=== PATIENT | female | born 1960 | race Two or more races ===

== ENCOUNTER 2017-04-16 18:35 | Inpatient (IN) | payer OTHER ==
[~2017-04-16 18:35] MED LIST: LIDOCAINE 2% (SDV) 5 ML INJ
[2017-04-16] MEDS ORDERED: D5-NS + KCL 20 MEQ 1,000 ML IV (20:42)
[2017-04-16] MEDS ORDERED: SUCCINYLCHOLINE CHLORIDE 100 MG/5 ML SYG IV ×2 (20:45→21:33)
[2017-04-16] MEDS ORDERED: ROPIVACAINE 0.5 % 30 ML VIAL (20:45)
[2017-04-16] MEDS ORDERED: PROVENTIL HFA 6.7GM INHALER (20:51)
[2017-04-16] MEDS: LIDOCAINE 1%/EPI 30 ML INJ ×2 (20:58→21:28)
[2017-04-16] MEDS: BUPIVACAINE 0.25% (MPF) 30 ML INJ ×2 (20:58→21:28)
[2017-04-16] MEDS ORDERED: ACETAMINOPHEN 325 MG TAB PO (21:00)
[2017-04-16] MEDS ORDERED: SUGAMMADEX SODIUM 200 MG/2 ML VIAL IV (21:33)
[2017-04-16] MEDS ORDERED: ROCURONIUM 50 MG INJ (21:33)
[2017-04-16] MEDS ORDERED: PROPOFOL 20 ML (21:33)
[2017-04-16] MEDS ORDERED: HYDROmorphONE (0.2 MG/ML) 10ML SYG IV ×2 (22:00)
[2017-04-16] MEDS ORDERED: FENTAnyl 50 MCG/ML VIAL IV ×3 (22:00)
[2017-04-16] MEDS ORDERED: METOCLOPRAMIDE 10 MG INJ IV (22:00)
[2017-04-16] MEDS ORDERED: DIPHENHYDRAMINE 50 MG INJ IV (22:00)
[2017-04-16] MEDS ORDERED: ALBUMIN HUMAN 5% 250 ML (22:58)
[2017-04-16] MEDS: ALBUMIN HUMAN 5% 250 ML IV (23:06)
[2017-04-16] MEDS: ONDANSETRON 4 MG INJ IV (23:25)
[2017-04-17] MEDS: ALBUMIN HUMAN 5% 250 ML IV (00:04)
[2017-04-17] MEDS: MEPERIDINE 25 MG INJ IV (00:06)
[2017-04-17] MEDS: PIPER-TAZO 3.375 GM IV (PMX) 100 ML IVPB ×4 (00:52→17:47)
[2017-04-17] MEDS: morphine 2 MG INJ IV ×3 (00:53→09:18)
[2017-04-17] MEDS: ONDANSETRON 4 MG INJ IV ×2 (00:53→06:29)
[2017-04-17] MEDS: SOD CHLORIDE 0.9% 1,000 ML IV ×3 (02:32→04:39)
[2017-04-17 02:51] LABS: ADD MAN DIFF? NO
[2017-04-17 02:55] LABS: BASOPHILS % 0.3 % (0.0-2.0); HEMATOCRIT 36.6 % (37.0-47.0); HEMOGLOBIN 11.6 g/dl (12.0-16.0); LYMPHOCYTES % 8.6 % (15.0-51.0); MEAN CORPUSCULAR HEMOGLOBIN 30.4 pg (29.0-33.0); MEAN CORPUSCULAR HGB CONC 31.7 g/dl (32.0-37.0); MEAN CORPUSCULAR VOLUME 96.1 fl (82.0-101.0); MEAN PLATELET VOLUME 11.3 fl (7.4-10.4); MONOCYTE # 1.1 10^3/ul (0.3-0.9); MONOCYTES % 9.3 % (0.0-11.0); NEUTROPHIL # 9.2 10^3/ul (1.6-7.5); NEUTROPHILS % 81.3 % (39.0-77.0); PLATELET COUNT 143 10^3/UL (140-415); RED BLOOD COUNT 3.81 10^6/ul (4.20-5.40); RED CELL DISTRIBUTION WIDTH 14.1 % (11.5-14.5)
[2017-04-17 02:55] LABS: WHITE BLOOD COUNT 11.3 10^3/ul (4.8-10.8)
[2017-04-17 03:14] LABS: HEMOGLOBIN A1C 5.2 % (0-5.9)
[2017-04-17 03:18] LABS: LACTIC ACID 2.2 mmol/L (0.5-2.0)
[2017-04-17 03:25] LABS: ALANINE AMINOTRANSFERASE 28 IU/L (13-69); ALBUMIN 3.4 g/dl (3.3-4.9); ALBUMIN/GLOBULIN RATIO 1.09; ALKALINE PHOSPHATASE 67 IU/L (42-121); ANION GAP 14 (8-16); ASPARTATE AMINO TRANSFERASE 26 IU/L (15-46); BILIRUBIN,INDIRECT 1.1 mg/dl (0-1.1); BILIRUBIN,TOTAL 1.1 mg/dl (0.2-1.3); BLOOD UREA NITROGEN 9 mg/dl (7-20); CALCIUM 7.7 mg/dl (8.4-10.2); CARBON DIOXIDE 29 mmol/L (21-31); CHLORIDE 108 mmol/L (97-110); CHOL/HDL RATIO 2.1 RATIO; CHOLESTEROL 133 mg/dl (100-200); CREATININE 0.74 mg/dl (0.44-1.00); GLUCOSE 98 mg/dl (70-220); HDL CHOLESTEROL 62 mg/dl (37-92); LDL CHOLESTEROL,CALCULATED 59 mg/dl; POTASSIUM 4.1 mmol/L (3.5-5.1); SODIUM 147 mmol/L (135-144); TOTAL PROTEIN 6.5 g/dl (6.1-8.1); TRIGLYCERIDES 59 mg/dl (0-149)
[2017-04-17 03:56] LABS: THYROID STIMULATING HORMONE 0.819 MIU/L (0.465-4.680)
[2017-04-17] MEDS: ACETAMINOPHEN 325 MG TAB PO (04:14)
[2017-04-17] MEDS ORDERED: DEXTROSE 5% 1,000 ML IV (04:30)
[2017-04-17] MEDS: PANTOPRAZOLE 40 MG INJ IV (06:07)
[2017-04-17] MEDS: SOD CHLORIDE 0.45% 1,000 ML IV ×2 (06:07→20:08)
[2017-04-17] MEDS: SODIUM CHLORIDE 0.45% 500 ML BAG IV* (06:30)
[2017-04-17] MEDS ORDERED: ACETAMINOPHEN 1000MG/100ML IV 100 ML IVPB (07:00)
[2017-04-17 08:01] LABS: LACTIC ACID 0.8 mmol/L (0.5-2.0)
[2017-04-17] MEDS: ENOXAPARIN 40 MG/0.4 ML SYG SC (08:40)
[2017-04-17 11:17] LABS: ADD MAN DIFF? NO
[2017-04-17 11:23] LABS: WHITE BLOOD COUNT 9.4 10^3/ul (4.8-10.8)
[2017-04-17 11:23] LABS: BASOPHILS % 0.2 % (0.0-2.0); EOSINOPHILS % 0.1 % (0.0-7.0); HEMATOCRIT 32.6 % (37.0-47.0); HEMOGLOBIN 10.3 g/dl (12.0-16.0); LYMPHOCYTES # 1.2 10^3/ul (0.8-2.9); LYMPHOCYTES % 12.5 % (15.0-51.0); MEAN CORPUSCULAR HEMOGLOBIN 29.9 pg (29.0-33.0); MEAN CORPUSCULAR HGB CONC 31.6 g/dl (32.0-37.0); MEAN CORPUSCULAR VOLUME 94.8 fl (82.0-101.0); MEAN PLATELET VOLUME 11.3 fl (7.4-10.4); MONOCYTE # 0.9 10^3/ul (0.3-0.9); MONOCYTES % 9.9 % (0.0-11.0); NEUTROPHIL # 7.2 10^3/ul (1.6-7.5); NEUTROPHILS % 77.1 % (39.0-77.0); PLATELET COUNT 128 10^3/UL (140-415); RED BLOOD COUNT 3.44 10^6/ul (4.20-5.40)
[2017-04-17 11:24] LABS: POSITIVE DIFF @See below
[2017-04-17 11:50] LABS: LACTIC ACID 0.7 mmol/L (0.5-2.0)
[2017-04-17 12:44] LABS: ANION GAP 13 (8-16); BLOOD UREA NITROGEN 9 mg/dl (7-20); CALCIUM 7.2 mg/dl (8.4-10.2); CARBON DIOXIDE 24 mmol/L (21-31); CHLORIDE 112 mmol/L (97-110); GLUCOSE 83 mg/dl (70-220); POTASSIUM 3.4 mmol/L (3.5-5.1); SODIUM 146 mmol/L (135-144)
[2017-04-17] MEDS: POTASSIUM CHLORIDE 100 ML IVPB (16:01)
[2017-04-17] MEDS: HYDROCODONE/APAP (5/325) TAB PO ×2 (23:51→23:52)
[2017-04-18] MEDS: PIPER-TAZO 3.375 GM IV (PMX) 100 ML IVPB ×4 (01:23→18:33)
[2017-04-18] MEDS: PANTOPRAZOLE 40 MG INJ IV (06:27)
[2017-04-18] MEDS: ENOXAPARIN 40 MG/0.4 ML SYG SC (06:28)
[2017-04-18] MEDS: SOD CHLORIDE 0.45% 1,000 ML IV ×3 (06:29→22:39)
[2017-04-18] MEDS: HYDROCODONE/APAP (5/325) TAB PO ×2 (07:34→22:40)
[2017-04-18 08:12] LABS: ADD MAN DIFF? NO
[2017-04-18 08:18] LABS: WHITE BLOOD COUNT 9.3 10^3/ul (4.8-10.8)
[2017-04-18 08:18] LABS: BASOPHILS % 0.2 % (0.0-2.0); EOSINOPHILS # 0.1 10^3/ul (0.0-0.5); EOSINOPHILS % 0.5 % (0.0-7.0); HEMATOCRIT 30.6 % (37.0-47.0); HEMOGLOBIN 10.1 g/dl (12.0-16.0); LYMPHOCYTES # 0.9 10^3/ul (0.8-2.9); LYMPHOCYTES % 9.6 % (15.0-51.0); MEAN CORPUSCULAR HEMOGLOBIN 30.7 pg (29.0-33.0); MEAN PLATELET VOLUME 11.5 fl (7.4-10.4); MONOCYTE # 0.6 10^3/ul (0.3-0.9); MONOCYTES % 6.5 % (0.0-11.0); NEUTROPHIL # 7.7 10^3/ul (1.6-7.5); NEUTROPHILS % 82.9 % (39.0-77.0); PLATELET COUNT 138 10^3/UL (140-415); RED BLOOD COUNT 3.29 10^6/ul (4.20-5.40); RED CELL DISTRIBUTION WIDTH 13.6 % (11.5-14.5)
[2017-04-18 08:38] LABS: ALANINE AMINOTRANSFERASE 27 IU/L (13-69); ALBUMIN/GLOBULIN RATIO 0.96; ALKALINE PHOSPHATASE 64 IU/L (42-121); ANION GAP 12 (8-16); ASPARTATE AMINO TRANSFERASE 23 IU/L (15-46); BILIRUBIN,INDIRECT 0.9 mg/dl (0-1.1); BILIRUBIN,TOTAL 0.9 mg/dl (0.2-1.3); BLOOD UREA NITROGEN 9 mg/dl (7-20); CALCIUM 7.9 mg/dl (8.4-10.2); CARBON DIOXIDE 26 mmol/L (21-31); CHLORIDE 108 mmol/L (97-110); CREATININE 0.65 mg/dl (0.44-1.00); GLUCOSE 98 mg/dl (70-220); POTASSIUM 3.4 mmol/L (3.5-5.1); SODIUM 143 mmol/L (135-144); TOTAL PROTEIN 6.1 g/dl (6.1-8.1)
[2017-04-18 09:41] LABS: PHOSPHORUS 1.8 mg/dl (2.5-4.9)
[2017-04-18 09:41] LABS: MAGNESIUM 1.8 mg/dl (1.7-2.5)
[2017-04-18] MEDS: POTASSIUM PHOSPHATE 15 MM in SOD CHLORIDE 0.9% 250 ML IVPB (14:43)
[2017-04-18] MEDS: ACETAMINOPHEN 650MG/20.3ML CUP PO (20:14)
[2017-04-19] MEDS: PIPER-TAZO 3.375 GM IV (PMX) 100 ML IVPB ×4 (00:25→17:12)
[2017-04-19] MEDS: PANTOPRAZOLE 40 MG INJ IV (06:39)
[2017-04-19] MEDS: ENOXAPARIN 40 MG/0.4 ML SYG SC (06:40)
[2017-04-19 08:59] LABS: ADD MAN DIFF? NO
[2017-04-19 09:05] LABS: WHITE BLOOD COUNT 7.2 10^3/ul (4.8-10.8)
[2017-04-19 09:05] LABS: BASOPHILS % 0.3 % (0.0-2.0); EOSINOPHILS # 0.1 10^3/ul (0.0-0.5); EOSINOPHILS % 1.1 % (0.0-7.0); HEMATOCRIT 32.1 % (37.0-47.0); HEMOGLOBIN 10.3 g/dl (12.0-16.0); LYMPHOCYTES # 1.1 10^3/ul (0.8-2.9); LYMPHOCYTES % 15.4 % (15.0-51.0); MEAN CORPUSCULAR HEMOGLOBIN 29.6 pg (29.0-33.0); MEAN CORPUSCULAR HGB CONC 32.1 g/dl (32.0-37.0); MEAN CORPUSCULAR VOLUME 92.2 fl (82.0-101.0); MEAN PLATELET VOLUME 11.6 fl (7.4-10.4); MONOCYTE # 0.4 10^3/ul (0.3-0.9); MONOCYTES % 5.8 % (0.0-11.0); NEUTROPHIL # 5.5 10^3/ul (1.6-7.5); NEUTROPHILS % 76.8 % (39.0-77.0); PLATELET COUNT 162 10^3/UL (140-415); RED BLOOD COUNT 3.48 10^6/ul (4.20-5.40); RED CELL DISTRIBUTION WIDTH 13.3 % (11.5-14.5)
[2017-04-19 09:21] LABS: ALANINE AMINOTRANSFERASE 31 IU/L (13-69); ALBUMIN 3.2 g/dl (3.3-4.9); ALBUMIN/GLOBULIN RATIO 0.96; ALKALINE PHOSPHATASE 76 IU/L (42-121); ANION GAP 9 (8-16); ASPARTATE AMINO TRANSFERASE 23 IU/L (15-46); BILIRUBIN,INDIRECT 0.4 mg/dl (0-1.1); BILIRUBIN,TOTAL 0.4 mg/dl (0.2-1.3); BLOOD UREA NITROGEN 6 mg/dl (7-20); CARBON DIOXIDE 33 mmol/L (21-31); CHLORIDE 108 mmol/L (97-110); CREATININE 0.66 mg/dl (0.44-1.00); GLUCOSE 99 mg/dl (70-220); POTASSIUM 3.5 mmol/L (3.5-5.1); SODIUM 146 mmol/L (135-144); TOTAL PROTEIN 6.5 g/dl (6.1-8.1)
[2017-04-19 09:22] LABS: MAGNESIUM 1.9 mg/dl (1.7-2.5)
[2017-04-19 09:22] LABS: PHOSPHORUS 1.8 mg/dl (2.5-4.9)
[2017-04-19] MEDS: POTASSIUM PHOSPHATE 15 MM in SOD CHLORIDE 0.9% 250 ML IVPB (12:43)
[2017-04-20] MEDS: PIPER-TAZO 3.375 GM IV (PMX) 100 ML IVPB ×3 (00:19→12:49)
[2017-04-20] MEDS: PANTOPRAZOLE 40 MG INJ IV (06:10)
[2017-04-20] MEDS: ENOXAPARIN 40 MG/0.4 ML SYG SC (06:22)
[2017-04-20 09:00] LABS: ADD MAN DIFF? NO
[2017-04-20 09:02] LABS: BASOPHILS % 0.7 % (0.0-2.0); EOSINOPHILS # 0.1 10^3/ul (0.0-0.5); EOSINOPHILS % 2.3 % (0.0-7.0); HEMATOCRIT 30.5 % (37.0-47.0); HEMOGLOBIN 10.2 g/dl (12.0-16.0); LYMPHOCYTES # 1.3 10^3/ul (0.8-2.9); LYMPHOCYTES % 22.6 % (15.0-51.0); MEAN CORPUSCULAR HEMOGLOBIN 30.2 pg (29.0-33.0); MEAN CORPUSCULAR HGB CONC 33.4 g/dl (32.0-37.0); MEAN CORPUSCULAR VOLUME 90.2 fl (82.0-101.0); MEAN PLATELET VOLUME 11.3 fl (7.4-10.4); MONOCYTE # 0.5 10^3/ul (0.3-0.9); MONOCYTES % 8.5 % (0.0-11.0); NEUTROPHIL # 3.8 10^3/ul (1.6-7.5); NEUTROPHILS % 65.6 % (39.0-77.0); PLATELET COUNT 179 10^3/UL (140-415); RED BLOOD COUNT 3.38 10^6/ul (4.20-5.40); RED CELL DISTRIBUTION WIDTH 13.4 % (11.5-14.5)
[2017-04-20 09:02] LABS: WHITE BLOOD COUNT 5.8 10^3/ul (4.8-10.8)
[2017-04-20 09:21] LABS: MAGNESIUM 1.8 mg/dl (1.7-2.5)
[2017-04-20 09:21] LABS: PHOSPHORUS 2.3 mg/dl (2.5-4.9)
[2017-04-20 09:23] LABS: ALANINE AMINOTRANSFERASE 35 IU/L (13-69); ALBUMIN/GLOBULIN RATIO 0.96; ALKALINE PHOSPHATASE 74 IU/L (42-121); ANION GAP 14 (8-16); ASPARTATE AMINO TRANSFERASE 24 IU/L (15-46); BILIRUBIN,INDIRECT 0.3 mg/dl (0-1.1); BILIRUBIN,TOTAL 0.3 mg/dl (0.2-1.3); BLOOD UREA NITROGEN 4 mg/dl (7-20); CARBON DIOXIDE 31 mmol/L (21-31); CHLORIDE 107 mmol/L (97-110); CREATININE 0.61 mg/dl (0.44-1.00); GLUCOSE 95 mg/dl (70-220); SODIUM 149 mmol/L (135-144); TOTAL PROTEIN 6.1 g/dl (6.1-8.1)
[2017-04-20 09:29] LABS: POTASSIUM 2.8 mmol/L (3.5-5.1)
[2017-04-20] MEDS: POTASSIUM CHLORIDE (SR) 20 MEQ TAB PO (10:21)
== END 2017-04-20 17:58 | disposition home or self-care (01) | DRG 853 ==
LOC: ICU 04-17 00:47 → MS2 18:35 → MS4 04-17 23:24
PROC: 0DTJ4ZZ Resection of Appendix, Percutaneous Endoscopic Approach (ICD-10-PCS; principal; 2017-04-16 20:00)
PROC: 0DNU4ZZ Release Omentum, Percutaneous Endoscopic Approach (ICD-10-PCS; 2017-04-16 20:00)
DX: A41.9 Sepsis, unspecified organism (principal); K35.3 Acute appendicitis with localized peritonitis; E87.2 Acidosis; K56.7 Ileus, unspecified; K66.0 Peritoneal adhesions (postprocedural) (postinfection); E66.9 Obesity, unspecified; I95.81 Postprocedural hypotension; Z68.38 Body mass index [BMI] 38.0-38.9, adult; Z90.49 Acquired absence of other specified parts of digestive tract
CPT/HCPCS: 80048; 80053; 80061; 83036; 83605; 83735; 84100; 84443; 85025; 87040; 87081; 88304